=== PATIENT | female | born 2000 | race Caucasian/White ===

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

== ENCOUNTER → 2020-01-29 | Outpatient (REF) | payer OTHER ==
[2020-01-29 21:27] LABS: APPEARANCE, URINE CLOUDY (CLEAR); BACTERIA, URINE AUTO 1+ (NEGATIVE); BILIRUBIN, URINE AUTO NEGATIVE (NEGATIVE); BLOOD, URINE BLOOD 2+ (NEGATIVE); COLOR, URINE AMBER (YELLOW); GLUCOSE, URINE (UA) AUTO 1+ mg/dL (NEGATIVE); KETONE, URINE AUTO NEGATIVE (NEGATIVE); LEUKOCYTE ESTERASE, URINE AUTO TRACE (NEGATIVE); MUCUS, URINE LARGE (NEGATIVE); NITRITE, URINE AUTO POSITIVE (NEGATIVE); PROTEIN, URINE AUTO 2+ mg/dL (NEGATIVE); RBC, URINE AUTO 96 /HPF (0-3); SPECIFIC GRAVITY URINE AUTO 1.027 (1.002-1.035); SQUAMOUS EPITHELIAL CELL UR AU 14 /HPF (0-6); TRANSITIONAL EPITHELIAL AUTO 3 /HPF; WBC, URINE AUTO TNTC /HPF (0-3)
== END ==
LOC: M LAB REF 21:00
PROVIDERS: ATTEND Physician Assistant
DX: N39.0 Urinary tract infection, site not specified (principal)

== ENCOUNTER 2020-02-08 18:43 | Emergency (ER) | payer OTHER ==
[~2020-02-08] VITALS: Ht 160 cm; Wt 92.3 kg
[2020-02-08 19:15] VITALS: BP 116/67
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
[2020-02-08] MEDS ORDERED: KETOROLAC 60MG 2ML VIAL IM ONE (20:15)
--- NOTE | 2020-02-09 09:26 | REP ---
LEFT ANKLE, FOUR VIEWS: There is no evidence of an acute fracture, dislocation, or intrinsic bone disease. IMPRESSION: No fracture or dislocation. Electronically Signed by Morales Rolon MD 02/09/2020 10:23 A
== END 2020-02-08 20:53 | disposition home or self-care (01) ==
LOC: M ED 18:43 → EDBD 18:43 → M ED 20:53
DX: S93.402A Sprain of unspecified ligament of left ankle, initial encounter (principal); V49.59XA Passenger injured in collision with other motor vehicles in traffic accident, initial encounter; Y92.410 Unspecified street and highway as the place of occurrence of the external cause
CPT/HCPCS: 70450; 72125; 73610; 96372; 99284; J1885

== ENCOUNTER 2021-06-08 23:09 | Emergency (ER) | payer OTHER ==
[~2021-06-08] VITALS: Ht 160 cm; Wt 98.3 kg
[2021-06-08 23:09] VITALS: BP 126/80
== END 2021-06-09 02:25 | disposition left against medical advice (07) ==
LOC: M ED 23:09
DX: Z53.21 Procedure and treatment not carried out due to patient leaving prior to being seen by health care provider (principal)

== ENCOUNTER 2022-01-10 13:52 | Emergency (ER) | payer OTHER ==
[~2022-01-10] VITALS: Ht 162.6 cm; Wt 96.5 kg
[2022-01-10 13:52] VITALS: BP 117/70
== END 2022-01-10 18:05 | disposition left against medical advice (07) ==
LOC: M ED 13:52
DX: Z53.29 Procedure and treatment not carried out because of patient's decision for other reasons (principal)

== ENCOUNTER → 2022-01-18 | Outpatient (REF) ==
[2022-01-18 10:57] LABS: RSV AMPLIFICATION NEGATIVE (NEGATIVE)
== END ==
LOC: M EMP 08:57
PROVIDERS: ATTEND Family Medicine
DX: Z11.52 Encounter for screening for COVID-19 (principal)

== ENCOUNTER 2022-02-23 23:33 | Emergency (ER) | payer BC, OTHER ==
[~2022-02-23] VITALS: Ht 160 cm; Wt 98.4 kg
[2022-02-24] MEDS ORDERED: ONDANSETRON 4MG ORAL DISINTEGRATING TAB PO ONE (00:25)
[2022-02-24] MEDS ORDERED: IBUP-1114 PO (01:19)
[2022-02-24 02:00] VITALS: BP 117/70
[2022-02-24] MEDS ORDERED: KETOROLAC 60MG 2ML VIAL IM ONE (02:00)
== END 2022-02-24 02:48 | disposition home or self-care (01) ==
LOC: M ED 23:33
DX: N94.6 Dysmenorrhea, unspecified (principal)
CPT/HCPCS: 80047; 84702; 96372; 99284; J1885

== ENCOUNTER → 2022-08-17 | Outpatient (REF) ==
[~2022-08-17] MED LIST changes: +IBUP-1114 PO
[2022-08-17 13:57] LABS: RSV AMPLIFICATION NEGATIVE (NEGATIVE)
== END ==
LOC: M LABSMTC 11:19
PROVIDERS: ATTEND Pediatrics
DX: Z20.828 Contact with and (suspected) exposure to other viral communicable diseases (principal)

== ENCOUNTER → 2022-11-07 | Outpatient (REF) | LOC: M EMP 08:16 | PROVIDERS: ATTEND Family Medicine | DX: Z11.52 Encounter for screening for COVID-19 (principal) ==

== ENCOUNTER 2022-12-01 16:12 | Emergency (ER) | payer BC, OTHER ==
[~2022-12-01] VITALS: Ht 162.6 cm; Wt 102.7 kg
[2022-12-01 16:14] VITALS: BP 113/69
== END 2022-12-01 20:02 | disposition left against medical advice (07) ==
LOC: M ED 16:12
DX: Z53.21 Procedure and treatment not carried out due to patient leaving prior to being seen by health care provider (principal)

== ENCOUNTER → 2022-12-01 | Outpatient (CLI) | payer BC, OTHER | LOC: M RAD 17:35 | PROVIDERS: ATTEND Physician Assistant Medical | DX: M54.2 Cervicalgia (principal) ==

== ENCOUNTER → 2022-12-14 | Outpatient (CLI) | payer BC, OTHER ==
[2022-12-14 14:44] LABS: BASO % 0.3 % (0.0-1.0); EOS # 0.1 10^3/uL (0.0-0.5); EOS % 1.1 % (0.0-3.0); HEMATOCRIT 40.3 % (36.0-47.0); HEMOGLOBIN 13.2 g/dl (12.0-15.5); LYMPH % 24.8 % (24.0-44.0); MEAN CORPUSCULAR HEMOGLOBIN 29.8 pg (27.0-33.0); MEAN CORPUSCULAR HGB CONC 32.8 g/dl (32.0-36.5); MONO # 0.9 10^3/uL (0.0-0.8); MONO % 10.8 % (2.0-8.0); NEUTROPHILS # 4.9 10^3/uL (1.5-8.5); NEUTROPHILS % 62.7 % (36.0-66.0); PLATELET COUNT, AUTOMATED 340 10^3/uL (150-450); RED BLOOD COUNT 4.43 10^6/uL (4.00-5.40); WHITE BLOOD COUNT 7.9 10^3/uL (4.0-10.0)
[2022-12-14 14:50] LABS: CK-MB VALUE MASS < 1.0 NG/ML (<3.6)
[2022-12-14 14:52] LABS: FREE T4 0.97 NG/DL (0.89-1.76)
[2022-12-14 14:53] LABS: THYROID STIMULATING HORMONE 1.317 uIU/ML (0.55-4.78)
[2022-12-14 14:58] LABS: ALKALINE PHOSPHATASE 84 U/L (46-116); ALT/SGPT 17 U/L (7.0-40); AST/SGOT 13 U/L (<34); BILIRUBIN,TOTAL 0.6 MG/DL (0.3-1.2); BLOOD UREA NITROGEN 10 MG/DL (9-23); CALCIUM LEVEL 9.3 MG/DL (8.5-10.1); CARBON DIOXIDE LEVEL 28 MMOL/L (20-31); CHLORIDE LEVEL 106 MMOL/L (98-107); CHOLESTEROL LEVEL 120 MG/DL (<200); CHOLESTEROL RISK RATIO 3.56 (<5); CREATININE FOR GFR 0.77 MG/DL (0.55-1.30); GLOMERULAR FILTRATION RATE > 60.0 (>60); GLUCOSE, FASTING 96 MG/DL (60-100); HDL CHOLESTEROL 33.7 MG/DL (>40); LDL CHOLESTEROL 68.9 MG/DL (<100); NON-HDL-C 86.3 MG/DL; POTASSIUM SERUM 4.3 MMOL/L (3.5-5.1); SODIUM LEVEL 140 MMOL/L (136-145); TOTAL PROTEIN 6.9 G/DL (5.7-8.2); TRIGLYCERIDES LEVEL 87 MG/DL (<150)
[2022-12-14 15:00] LABS: CPK CREATINE PHOSPHOKINASE 88 U/L (34-145); MB/CK RELATIVE INDEX 1.13 (< OR =4)
[2022-12-14 15:20] LABS: HEMOGLOBIN A1c 5.2 % (4.0-6.0)
== END ==
LOC: M PLALAB 10:17
PROVIDERS: ATTEND Nurse Practitioner Family
DX: R00.2 Palpitations (principal); Z13.220 Encounter for screening for lipoid disorders

== ENCOUNTER 2022-12-15 10:57 | Emergency (ER) | payer BC, OTHER ==
[~2022-12-15] VITALS: Ht 157.5 cm; Wt 105.7 kg
[2022-12-15 11:59] VITALS: BP 101/64
[2022-12-15 12:04] LABS: BASO % 0.5 % (0.0-1.0); EOS # 0.1 10^3/uL (0.0-0.5); EOS % 1.6 % (0.0-3.0); HEMATOCRIT 40.3 % (36.0-47.0); HEMOGLOBIN 13.4 g/dl (12.0-15.5); LYMPH % 35.3 % (24.0-44.0); MEAN CORPUSCULAR HEMOGLOBIN 29.8 pg (27.0-33.0); MEAN CORPUSCULAR HGB CONC 33.3 g/dl (32.0-36.5); MEAN CORPUSCULAR VOLUME 89.6 fl (80.0-96.0); MONO # 0.8 10^3/uL (0.0-0.8); MONO % 14.4 % (2.0-8.0); NEUTROPHILS # 2.7 10^3/uL (1.5-8.5); PLATELET COUNT, AUTOMATED 304 10^3/uL (150-450); WHITE BLOOD COUNT 5.6 10^3/uL (4.0-10.0)
[2022-12-15 12:34] LABS: HCG, SERUM QUALITATIVE NEGATIVE (NEGATIVE)
[2022-12-15 12:35] LABS: ALBUMIN 3.9 G/DL (3.2-5.2); ALKALINE PHOSPHATASE 93 U/L (46-116); ALT/SGPT 14 U/L (7.0-40); AST/SGOT 14 U/L (<34); BILIRUBIN,DIRECT 0.2 MG/DL (<0.4); BILIRUBIN,TOTAL 0.6 MG/DL (0.3-1.2); BLOOD UREA NITROGEN 6 MG/DL (9-23); CALCIUM LEVEL 8.9 MG/DL (8.5-10.1); CARBON DIOXIDE LEVEL 28 MMOL/L (20-31); CHLORIDE LEVEL 106 MMOL/L (98-107); CREATININE FOR GFR 0.75 MG/DL (0.55-1.30); GLOMERULAR FILTRATION RATE > 60.0 (>60); GLUCOSE, FASTING 97 MG/DL (60-100); SODIUM LEVEL 139 MMOL/L (136-145); TOTAL PROTEIN 6.9 G/DL (5.7-8.2)
[2022-12-15 12:37] LABS: FREE T4 0.87 NG/DL (0.89-1.76)
[2022-12-15 12:38] LABS: THYROID STIMULATING HORMONE 1.581 uIU/ML (0.55-4.78)
[2022-12-15] MEDS ORDERED: KETOROLAC 30 MG/ML 1ML VIAL IV ONE (12:45)
[2022-12-15 13:07] LABS: HEMOGLOBIN A1c 5.2 % (4.0-6.0)
[2022-12-15] MEDS ORDERED: ACETAMINOPHEN 325 MG TAB PO ONE (13:15)
== END 2022-12-15 14:32 | disposition home or self-care (01) ==
LOC: M ED 10:57
DX: R55 Syncope and collapse (principal); F17.200 Nicotine dependence, unspecified, uncomplicated

== ENCOUNTER → 2022-12-15 | Outpatient (REF) | LOC: M EMP 09:44 | PROVIDERS: ATTEND Family Medicine | DX: Z20.822 Contact with and (suspected) exposure to COVID-19 (principal) ==

== ENCOUNTER → 2022-12-24 | Outpatient (REF) | payer OTHER | LOC: M LAB REF 12:11 | PROVIDERS: ATTEND Physician Assistant Medical | DX: J02.9 Acute pharyngitis, unspecified (principal) ==

== ENCOUNTER → 2024-05-28 | Outpatient (REF) | payer OTHER, MEDICAID | LOC: M LAB REF 21:12 | PROVIDERS: ATTEND Physician Assistant Medical | DX: R52 Pain, unspecified (principal) ==

== ENCOUNTER → 2024-08-17 | Outpatient (REF) | payer OTHER, MEDICAID | LOC: M LAB REF 17:28 | PROVIDERS: ATTEND Physician Assistant Medical | DX: B34.9 Viral infection, unspecified (principal) ==

== ENCOUNTER 2025-01-15 07:13 | Emergency (ER) | payer OTHER, BC ==
[~2025-01-15] VITALS: Ht 162.6 cm; Wt 116.8 kg
[2025-01-15] MEDS ORDERED: METF500T13 (07:19)
[2025-01-15] MEDS ORDERED: MULTTAB20 PO (07:19)
[2025-01-15 09:46] VITALS: BP 114/68; TEMP 96.6; O2SAT 99
== END 2025-01-15 10:00 | disposition home or self-care (01) ==
LOC: M ED 07:13
DX: S70.02XA Contusion of left hip, initial encounter (principal); W10.9XXA Fall (on) (from) unspecified stairs and steps, initial encounter; Y92.009 Unspecified place in unspecified non-institutional (private) residence as the place of occurrence of the external cause; Y93.9 Activity, unspecified; Y99.9 Unspecified external cause status; Z3A.01 Less than 8 weeks gestation of pregnancy

== ENCOUNTER → 2025-04-02 | Outpatient (REF) ==
[~2025-04-02] MED LIST changes: +METF500T13; +MULTTAB20 PO
== END ==
LOC: M EMP 08:31
PROVIDERS: ATTEND Family Medicine
DX: Z01.89 Encounter for other specified special examinations (principal)